=== PATIENT | female | born 1965 | race Caucasian/White ===

== ENCOUNTER → 2021-08-12 | Outpatient (CLI) | payer OTHER ==
[2021-08-14 14:10] LABS: HPV 16 Negative (Negative); HPV 18 Negative (Negative); HPV OTHER HR TYPES Negative (Negative)
== END | disposition home or self-care (01) ==
LOC: LAB SHORT 13:13
PROVIDERS: Family Medicine
DX: Z01.419 Encounter for gynecological examination (general) (routine) without abnormal findings (principal)
CPT/HCPCS: 87624; G0145

== ENCOUNTER 2022-02-04 11:46 | Day surgery (SDC) | payer OTHER ==
[~2022-02-04] VITALS: Ht 180.3 cm; Wt 90.0 kg
[~2022-02-04 11:46] MED LIST: CYCL10 PO; ELIQUIS5 M2 PO; GABA300 PO; LEVSOD25 PO; LOSARTAN POTAS100 M1 PO
[2022-02-04] MEDS ORDERED: WARF1 (12:00)
[2022-02-04] MEDS ORDERED: METO25ER (12:11)
== END 2022-02-04 13:56 | disposition home or self-care (01) ==
LOC: ORSCSDS 11:46
PROVIDERS: Surgery
PROC: 0DBN8ZX Excision of Sigmoid Colon, Via Natural or Artificial Opening Endoscopic, Diagnostic (ICD-10-PCS; principal; 2022-02-04 13:00)
DX: Z12.11 Encounter for screening for malignant neoplasm of colon (principal); D12.5 Benign neoplasm of sigmoid colon; I10 Essential (primary) hypertension; I48.0 Paroxysmal atrial fibrillation; E03.9 Hypothyroidism, unspecified; E78.1 Pure hyperglyceridemia; Z87.891 Personal history of nicotine dependence; Z79.899 Other long term (current) drug therapy; Z79.01 Long term (current) use of anticoagulants
CPT/HCPCS: 88305; J2704; J7120

== ENCOUNTER → 2024-09-14 | Outpatient (CLI) | payer OTHER ==
[~2024-09-14] MED LIST changes: +METO25ER; +WARF1
[2024-09-17 15:07] LABS: B PERTUSSIS/PARAPERTUSS SOURCE Nasopharyngeal; BORD PARAPERTUSSIS BY PCR Equivocal; BORDETELLA PERTUSSIS BY PCR Equivocal
== END ==
LOC: LAB 11:46 → LAB SHORT 11:46
PROVIDERS: Family Medicine
DX: R05.9 Cough, unspecified (principal)
CPT/HCPCS: 87798

== ENCOUNTER 2025-02-08 14:08 | Day surgery (SDC) | payer OTHER ==
[~2025-02-08] VITALS: Ht 172.7 cm; Wt 84.9 kg
[2025-02-08] VITALS (8 sets, daily range): BP systolic 103–146; BP diastolic 85–106
[~2025-02-08 14:08] MED LIST changes: +CeFAZolin Sodium 2,000 MG in NS 100 ML IV SCH; +GABA100; +Lactated Ringer's 1,000 ML IV SCH; -METO25ER; +METO25ER PO; +TRAM50 PO; +VITAMIN D5000 UNIT PO
--- NOTE | 2025-02-08 14:52 | NUR ---
PT TO SDS VIA WC. PT ABLE TO STAND ON SCALE FOR ACCURATE HEIGHT/WEIGHT. History, Chart, Medications and Allergies reviewed before start of procedure. Lungs clear T/O to Auscultation. Patient confirms NPO status and agrees with scheduled surgery. Pre-Op teaching done. Pt verbalizes understanding. Patient States Post-Procedure ride home has been arranged. PT SPOUSE AT BEDSIDE. PT BELONGINGS GIVEN TO SPOUSE FOR SAFEKEEPING.
[2025-02-08] MEDS ORDERED: Midazolam HCl 1MG / ML 2ML Vial ONE (14:58)
[2025-02-08] MEDS ORDERED: Bupivacaine 0.5% W/EPI 1:200000 SDV 30 ML Vial ONE (14:58)
[2025-02-08] MEDS ORDERED: propofoL 20 ML IV ONE (15:32)
[2025-02-08] MEDS ORDERED: FentaNYL Citrate 50 MCG/ML 2 ML Injection ONE (15:32)
--- NOTE | 2025-02-08 15:33 | NUR ---
1515: DR. OBREGON AT BEDSIDE TO PERFORM POPLITEAL NERVE BLOCK IN PREOP. 1518: TIMEOUT COMPLETE BY RN. PRE MEDS GIVEN BY DR OBREGON AT BEDSIDE. SEE ANESTHESIA NOTES. 1526: BLOCK TIME START. 1529: BLOCK TIME END. PT ON CONTINOUS HR/PULSE OX THROUGHOUT PROCEDURE. VSS THROUGHOUT PROCEDURE AND PT TOLERATED WELL.
[2025-02-08] MEDS ORDERED: Ondansetron HCl 2 MG / ML 2ML Vial ONE (15:39)
[2025-02-08] MEDS ORDERED: Dexamethasone Sod Phos 10 MG/ML 1ML VIAL ONE (15:39)
[2025-02-08] MEDS ORDERED: Phenylephrine HCl 100 MCG/ML-NS 10MLSYR (1MG/10ML) ONE (15:57)
[2025-02-08] MEDS ORDERED: Metoclopramide HCl 5MG / ML 2ML Vial IV PRN (16:35)
[2025-02-08] MEDS ORDERED: OxyCODONE 5 mg/Acetamin 325 mg TABLET PO PRN (16:40)
[2025-02-08] MEDS ORDERED: HYDROmorphone HCl/Pf 1MG SYR IV PRN (16:40)
[2025-02-08] MEDS ORDERED: FentaNYL Citrate 50 MCG/ML 2 ML Injection IV PRN (16:40)
[2025-02-08] MEDS ORDERED: Ketorolac Tromethamine 30mg Vial IV PRN (16:45)
--- NOTE | 2025-02-08 18:24 | NUR ---
Discharge instructions reviewed with patient. Patient verbalizes understanding. Copy given to patient to take home. Discharged via wheelchair to private car for ride home. Ice pack placed & sent home with patient along with other belongings. Pt to restroom for unmeasured void via wheelchair & SBA.
== END 2025-02-08 17:50 | disposition home or self-care (01) ==
LOC: ORSCMMR 14:08 → ORD 14:45 → ORSCMMR 17:50
PROVIDERS: Podiatrist Foot & Ankle Surgery
PROC: 0QSK04Z Reposition Left Fibula with Internal Fixation Device, Open Approach (ICD-10-PCS; principal; 2025-02-08 14:45)
DX: S82.62XA Displaced fracture of lateral malleolus of left fibula, initial encounter for closed fracture (principal); W18.30XA Fall on same level, unspecified, initial encounter; I48.91 Unspecified atrial fibrillation; Z79.01 Long term (current) use of anticoagulants; I10 Essential (primary) hypertension; Z79.899 Other long term (current) drug therapy
CPT/HCPCS: C1713; J0690; J1100; J1171; J2250; J2371; J2405; J2704; J3010; J7120